=== PATIENT | female | born 1945 | race Caucasian/White ===

== ENCOUNTER 2016-11-05 10:42 | Day surgery (SDC) | payer MEDICARE, OTHER ==
--- NOTE | ~2016-11-05 | EGD ---
EGD REPORT [facility] [address] [address] NAME: CITLALY AVENDAÑO BRANCH : [birth year] STATUS : REG [facility] [place] PAT#: [id number] AGE: 71 ADM/REG DATE : 11/05/16 MR#: [id number] REPORT SERV DATE: 11/05/16 DICTATED BY: FORREST BLACKBURN DATE: 11/05/16 REPORT STATUS : Draft TRANSCRIBED BY: [facility] DATE: 11/05/16 Endoscopy Center Patient Name: Citlaly Avendaño Date of : 1945 Attending MD: FORREST BLACKBURN MD Procedure Date No Time: 11/05/2016 Procedure: Upper GI endoscopy Indications: Waters's esophagus, Diarrhea Referring MD: TATUM ALMEIDA MD Medicines: Monitored Anesthesia Care Complications: No immediate complications. Procedure: Pre-Anesthesia Assessment: - ASA Grade Assessment: III - A patient with severe systemic disease. After obtaining informed consent, the endoscope was passed under direct vision. Throughout the procedure, the patient's blood pressure, pulse, and oxygen saturations were monitored continuously. The GIF H190 [id number] was introduced through the mouth, and advanced to the second part of duodenum. The upper GI endoscopy was accomplished without difficulty. The patient tolerated the procedure well. Findings: The esophagus and gastroesophageal junction were examined with white light. There were esophageal mucosal changes consistent with short-segment Waters's esophagus, extending from the upper extent of the gastric folds which were at 34 cm from the incisors to the Z-line which was at 33 cm from the incisors. The maximum longitudinal extent of these esophageal mucosal changes was 1 cm in length. Biopsies were taken with a cold forceps for histology. A 4 cm hiatus hernia was present. Patchy moderate inflammation characterized by erythema was found in the gastric antrum. Biopsies were taken with a cold forceps for histology. The cardia and gastric fundus were normal on retroflexion. The duodenal bulb and 2nd part of the duodenum were normal. Biopsies were taken with a cold forceps for histology. 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 Biopsied. - Hiatus hernia. - Gastritis. Biopsied. - Normal duodenal bulb and 2nd part of the duodenum. Biopsied. EGD REPORT [address] [address] NAME: YOLETTE AVENDAÑOIA [facility] : [birth year] STATUS : REG [facility] [place] PAT#: [id number] AGE: 71 ADM/REG DATE : 11/05/16 MR#: [id number] REPORT SERV DATE: 11/05/16 DICTATED BY: FORREST BLACKBURN DATE: 11/05/16 REPORT STATUS : Draft [facility]ANSCRIBED BY: [facility] DATE: 11/05/16 Recommendation: - Await pathology results. - Follow an antireflux regimen. - Continue present medications. - Repeat the upper endoscopy in 3 years for surveillance. Procedure Code(s): --- Professional --- 86043, Esophagogastroduodenoscopy, flexible, transoral; with biopsy, single or multiple Diagnosis Code(s): --- Professional --- K22.70, Waters's esophagus without dysplasia K44.9, Diaphragmatic hernia without obstruction or gangrene K29.70, Gastritis, unspecified, without bleeding R19.7, Diarrhea, unspecified CPT copyright 2013 [employer]. All rights reserved. The codes documented in this report are preliminary and upon him coder review may be revised to meet current compliance requirements. FORREST BLACKBURN MD 11/05/2016 1:34 PM This report has been signed electronically. Number of Addenda: 0 Note Initiated On: 11/05/2016 1:18 PM Scope Withdrawal Time 0 hours 0 minutes 0 seconds [address] [place] [id number]
--- NOTE | ~2016-11-05 | EGD ---
EGD REPORT [facility] [address] [address] NAME: CITLALY AVENDAÑO BRANCH : [birth year] [place] : [place] [facility] [place]#: [id number] AGE: 71 ADM/REG DATE : 11/05/16 MR#: [id number] REPORT SERV DATE: 11/05/16 DICTATED BY: FORREST BLACKBURN DATE: 11/05/16 REPORT STATUS : Draft TRANSCRIBED BY: [facility] DATE: 11/05/16 Endoscopy Center Patient Name: Citlaly Avendaño Date of : 1945 Attending MD: FORREST BLACKBURN MD Procedure Date No Time: 11/05/2016 Procedure: Colonoscopy Indications: Clinically significant diarrhea of unexplained origin, Change in bowel habits Referring MD: TATUM ALMEIDA MD Medicines: Monitored Anesthesia Care Complications: No immediate complications. Procedure: Pre-Anesthesia Assessment: - ASA Grade Assessment: III - A patient with severe systemic disease. After I obtained informed consent, the scope was passed under direct vision. Throughout the procedure, the patient's blood pressure, pulse, and oxygen saturations were monitored continuously. The PCF [id number] was introduced through the anus and advanced to the terminal ileum, with identification of the appendiceal orifice and IC valve. The colonoscopy was performed without difficulty. The patient tolerated the procedure well. The quality of the bowel preparation was adequate. Findings: The digital rectal exam was normal. Pertinent negatives include no palpable rectal lesions. The terminal ileum appeared normal. The ascending colon appeared normal. Biopsies were taken with a cold forceps for evaluation of microscopic colitis. A sessile polyp was found in the cecum. The polyp was 6 mm in size. The polyp was removed with a cold biopsy forceps. Resection and retrieval were complete. Two sessile polyps were found in the ascending colon. The polyps were 4 to 5 mm in size. These polyps were removed with a cold biopsy forceps. Resection and retrieval were complete. A sessile polyp was found in the ascending colon. The polyp was 7 mm in size. The polyp was removed with a cold snare. Resection and retrieval were complete. Two sessile polyps were found in the transverse colon. The polyps were 6 to 7 mm in size. These polyps were removed with a cold snare. Resection was complete, but the polyp tissue was only partially retrieved. The sigmoid colon appeared normal. Biopsies were taken with a cold forceps for evaluation of microscopic colitis. EGD REPORT [address] [address] NAME: CITLALY AVENDAÑO [facility] : [birth year] STATUS : REG [facility]#: [id number] AGE: 71 ADM/REG DATE : 11/05/16 MR#: [id number] REPORT SERV DATE: 11/05/16 DICTATED BY: FORREST BLACKBURN DATE: 11/05/16 REPORT STATUS : Draft TRANSCRIBED BY: [employer] DATE: 11/05/16 Hemorrhoids were found during retroflexion and were mild. Impression: - The examined portion of the ileum was normal. - The ascending colon is normal. Biopsied. - One 6 mm polyp in the cecum. Resected and retrieved. - Two 4 to 5 mm polyps in the ascending colon. Resected and retrieved. - One 7 mm polyp in the ascending colon. Resected and retrieved. - Two 6 to 7 mm polyps in the transverse colon. Complete resection. Partial retrieval. - The sigmoid colon is normal. Biopsied. - Hemorrhoids. Recommendation: - Patient has a contact number available for emergencies. The signs and symptoms of potential delayed complications were discussed with the patient. Return to normal activities tomorrow. Written discharge instructions were provided to the patient. - Regular diet. - Continue present medications. - Repeat colonoscopy for surveillance based on pathology results. - Return to GI clinic in 1 month. Procedure Code(s): --- Professional --- 36124, Colonoscopy, flexible, proximal to splenic flexure; with removal of tumor(s), polyp(s), or other lesion(s) by snare technique 15083, 59, Colonoscopy, flexible, proximal to splenic flexure; with biopsy, single or multiple Diagnosis Code(s): --- Professional --- K64.9, Unspecified hemorrhoids D12.3, Benign neoplasm of transverse colon D12.2, Benign neoplasm of ascending colon D12.0, Benign neoplasm of cecum R19.7, Diarrhea, unspecified R19.4, Change in bowel habit CPT copyright 2013 [employer]. All rights reserved. The codes documented in this report are preliminary and upon header machine operator review may be revised to meet current compliance requirements. EGD REPORT [facility] [address] [id number] NAME: CITLALY AVENDAÑO [place] BRANCH : [birth year] STATUS : REG [facility]#: [id number] AGE: 71 ADM/REG DATE : 11/05/16 MR#: [id number] REPORT SERV DATE: 11/05/16 DICTATED BY: FORREST BLACKBURN DATE: 11/05/16 REPORT STATUS : Draft TRANSCRIBED BY: [facility] DATE: 11/05/16 FORREST BLACKBURN MD 11/05/2016 2:03 PM This report has been signed electronically. Number of Addenda: 0 Note Initiated On: 11/05/2016 1:19 PM Scope Withdrawal Time 0 hours 18 minutes 38 seconds [address] [address] [id number]
[~2016-11-05 10:42] MED LIST: ACET500CAP PO; ASAB PO; CAP50 PO; CARASPUDL PO; COREG12 PO; ISOPTINSR PO; LIPITOR40 PO; LISINOPRIL40 MG PO; LOP100 PO; PRILOSEC OTC20 MG PO; PRILOSEC40 MG PO; PROAIR HFA INH; REG PO; SINGULAIR1 PO; SYMBICORT 160/41 INH INH; VERAPAMIL PO; VERELAN240 MG PO; ZANTAC 150 PO; ZOCOR20 PO; ZOL100 PO; ZOL50 PO; ZYRTEC; ZYRTEC ALLGY10 MG PO
[2017-02-12] MEDS ORDERED: SINGULAIR1 PO (16:25)
[2017-02-12] MEDS ORDERED: LISINOPRIL40 MG PO (16:25)
[2017-02-12] MEDS ORDERED: PRILOSEC40 MG PO (16:26)
[2017-02-12] MEDS ORDERED: PROAIR HFA INH (16:26)
[2017-02-12] MEDS ORDERED: LIPITOR40 PO (16:26)
[2017-02-12] MEDS ORDERED: REG PO (16:26)
[2017-02-12] MEDS ORDERED: ZYRTEC ALLGY10 MG PO (16:27)
[2017-02-12] MEDS ORDERED: COREG25 PO (16:27)
[2017-02-12] MEDS ORDERED: ZANTAC 150 PO (16:27)
[2017-02-12] MEDS ORDERED: SYMBICORT 160/41 INH INH (16:27)
[2017-02-12] MEDS ORDERED: ALBUTEROL0.083 % INH (16:28)
[2017-02-12] MEDS ORDERED: ZOL100 PO (16:28)
[2017-02-12] MEDS ORDERED: BENTYL10 PO (16:28)
[2017-02-12] MEDS ORDERED: ESTRACE0.5 MG PO (16:29)
[2017-02-12] MEDS ORDERED: NEUR100 PO (16:49)
[2017-02-21] MEDS ORDERED: BENTYL20 PO (14:10)
[2017-03-06] MEDS ORDERED: ELIQUIS 2.5 MG2.5 MG PO (15:34)
[2017-03-06] MEDS ORDERED: SUCR PO (15:34)
[2017-03-06] MEDS ORDERED: PERCOCET 10/3251 TAB PO (15:34)
== END 2016-11-05 23:59 | disposition home or self-care (01) ==
LOC: DMU 10:42
PROVIDERS: Internal Medicine Gastroenterology
PROC: 0DB68ZX Excision of Stomach, Via Natural or Artificial Opening Endoscopic, Diagnostic (ICD-10-PCS; 2016-11-05)
PROC: 0DBK8ZX Excision of Ascending Colon, Via Natural or Artificial Opening Endoscopic, Diagnostic (ICD-10-PCS; 2016-11-05)
PROC: 0DBN8ZX Excision of Sigmoid Colon, Via Natural or Artificial Opening Endoscopic, Diagnostic (ICD-10-PCS; 2016-11-05)
PROC: 0DBH8ZX Excision of Cecum, Via Natural or Artificial Opening Endoscopic, Diagnostic (ICD-10-PCS; 2016-11-05)
PROC: 0DBH8ZX Excision of Cecum, Via Natural or Artificial Opening Endoscopic, Diagnostic (ICD-10-PCS; 2016-11-05)
PROC: 0DBL8ZX Excision of Transverse Colon, Via Natural or Artificial Opening Endoscopic, Diagnostic (ICD-10-PCS; 2016-11-05)
PROC: 0DB98ZX Excision of Duodenum, Via Natural or Artificial Opening Endoscopic, Diagnostic (ICD-10-PCS; principal; 2016-11-05 12:30)
PROC: 0DB58ZX Excision of Esophagus, Via Natural or Artificial Opening Endoscopic, Diagnostic (ICD-10-PCS; 2016-11-05 12:30)
DX: D12.2 Benign neoplasm of ascending colon (principal); D12.0 Benign neoplasm of cecum; D12.3 Benign neoplasm of transverse colon; R19.4 Change in bowel habit; K64.9 Unspecified hemorrhoids; K29.50 Unspecified chronic gastritis without bleeding; K44.9 Diaphragmatic hernia without obstruction or gangrene; K22.70 Barrett's esophagus without dysplasia; I10 Essential (primary) hypertension; E78.00 Pure hypercholesterolemia, unspecified; F41.9 Anxiety disorder, unspecified; F32.9 Major depressive disorder, single episode, unspecified; M19.90 Unspecified osteoarthritis, unspecified site; M79.7 Fibromyalgia; J45.909 Unspecified asthma, uncomplicated; Z90.49 Acquired absence of other specified parts of digestive tract; Z98.890 Other specified postprocedural states; Z88.8 Allergy status to other drugs, medicaments and biological substances; Z79.899 Other long term (current) drug therapy
CPT/HCPCS: 88305; 88313; 88342